=== PATIENT | female | born 1980 | race Caucasian/White ===

== ENCOUNTER 2020-09-30 02:31 | Emergency (ER) | payer SELFPAY ==
[2020-09-30 02:35] VITALS: Wt 92.7 kg
[2020-09-30] MEDS ORDERED: SPRINTEC 28 DA1 EAC1 PO (02:37)
[2020-09-30] MEDS ORDERED: EZFE 200200 MG PO (02:37)
[2020-09-30 02:56] LABS: BASOPHILS 0.4 % (0-2); EOSINOPHILS 2.8 % (0-7); HEMATOCRIT 33.2 % (36.0-48.0); HEMOGLOBIN 10.6 g/dL (12-16); IMMATURE GRANULOCYTES 0.1 % (0-5); LYMPHOCYTE ABS# 2.75 10x3/uL (1.18-3.74); LYMPHOCYTES 38.2 % (15-50); MCH 25.8 pg (26.0-34.0); MCHC 31.9 g/dL (31.0-37.0); MCV 80.8 fL (80.0-100.0); MEAN PLATELET VOLUME 9.2 fL (7.4-10.4); MONOCYTES 9.4 % (2-11); NEUTROPHIL ABS# 3.53 10x3/uL (1.56-6.13); NEUTROPHILS 49.1 % (40-80); RBC 4.11 10x6/uL (4.00-5.40); RDW 14.6 % (11.5-14.5); WBC 7.2 10x3/uL (4.8-10.8)
[2020-09-30 03:03] LABS: PLATELET COUNT 228 10x3/uL (130-400)
[2020-09-30 03:04] LABS: CALC OSMOLALITY 273 mosm/kg (275-300); CALCIUM 8.5 mg/dL (8.5-10.1); CARBON DIOXIDE 23.8 mmol/L (21.0-32.0); CHLORIDE - SERUM 105 mmol/L (98-107); CREATININE - SERUM 0.8 mg/dL (0.6-1.3); GLUCOSE 110 mg/dL (74-106); POTASSIUM - SERUM 3.6 mmol/L (3.5-5.1); SODIUM 137 mmol/L (136-145); UREA NITROGEN 11 mg/dL (7-18); eGFR NON AFRICAN AMERICAN 85 mL/min (90-120)
[2020-09-30 03:13] LABS: BILIRUBIN NEGATIVE (NEGATIVE); HCG URINE NEGATIVE (NEGATIVE); KETONE NEGATIVE (NEGATIVE); NITRITE NEGATIVE (NEGATIVE); UROBILINOGEN NORMAL mg/dL (< 2)
[2020-09-30 03:19] LABS: ALBUMIN 3.1 g/dL (3.4-5.0); ALKALINE PHOSPHATASE 74 U/L (30-120); ALT (SGPT) 13 U/L (10-68); PROTEIN - SERUM 7.5 g/dL (6.4-8.2); THYROID STIMULATING HORMONE 2.45 uIU/mL (0.36-3.74)
[2020-09-30 03:21] LABS: BILIRUBIN - TOTAL 0.08 mg/dL (0.2-1.3)
[2020-09-30 05:08] VITALS: BP 140/80
== END 2020-09-30 05:09 | disposition home or self-care (01) ==
LOC: D.ER 02:31
PROVIDERS: Family Medicine
DX: N93.9 Abnormal uterine and vaginal bleeding, unspecified (principal)

== ENCOUNTER 2020-12-06 08:50 | Emergency (ER) | payer SELFPAY ==
[~2020-12-06] VITALS: Ht 152.4 cm; Wt 86.4 kg
[~2020-12-06 08:50] MED LIST: EZFE 200200 MG PO; SPRINTEC 28 DA1 EAC1 PO
[2020-12-06 08:53] VITALS: Ht 152.4 cm; Wt 86.4 kg
[2020-12-06] MEDS ORDERED: IBUPROFEN800 MG PO (08:58)
[2020-12-06] MEDS ORDERED: ORAL ANALGESIC9 GM TOPICAL (08:58)
[2020-12-06] MEDS ORDERED: CEPHALEXIN500 M1 PO (08:58)
[2020-12-06] MEDS ORDERED: ACETAMINOPHEN500 M1 PO (08:58)
[2020-12-06] MEDS ORDERED: NORVASC2.5 MG PO (09:02)
[2020-12-06 09:05] VITALS: BP 156/101
== END 2020-12-06 09:06 | disposition home or self-care (01) ==
LOC: D.ER 08:50
DX: K04.7 Periapical abscess without sinus (principal); I10 Essential (primary) hypertension; K02.9 Dental caries, unspecified